=== PATIENT | female | born 1935 | race Caucasian/White ===

== ENCOUNTER 2019-05-27 22:16 | Inpatient (IN) ==
[2019-05-28 03:46] LABS: Hematocrit 35.4 % (35.3-44.9); Hemoglobin 11.2 g/dL (11.5-15.4); Mean Corpuscular HGB Conc 31.6 g/dL (31.6-35.5); Mean Corpuscular Hemoglobin 30.9 pg (28.0-33.3); Mean Corpuscular Volume 97.5 fL (83.0-100.0); Mean Platelet Volume 10.3 fL (9.4-12.4); Platelet Count 274 K/mcL (140-400); Red Blood Count 3.63 M/mcL (3.82-4.97); Red Cell Distribution Width 13.9 % (11.5-14.5); White Blood Count 8.6 K/mcL (4.3-11.1)
[2019-05-28 04:07] LABS: Albumin 3.3 g/dL (3.5-5.7); Albumin/Globulin Ratio 1.3 (1.1-2.2); Bilirubin,Total 0.5 mg/dL (0.3-1.0); Calcium 9.7 mg/dL (8.6-10.3); Globulin 2.6 g/dL (2.4-3.5); Potassium 5.1 mEq/L (3.5-5.1); Total Protein 5.9 g/dL (6.4-8.9)
[2019-05-28 04:10] LABS: Troponin I 0.13 ng/mL (< 0.04)
[2019-05-28] MEDS ORDERED: Naloxone 0.4 MG/ML INJ IVP PRN (04:30)
[2019-05-28] MEDS ORDERED: 0.9 % Sodium Chloride 1,000 ML IVC ONE ×2 (04:31→08:12)
[2019-05-28] MEDS ORDERED: D5% in Water 1,000 ML IVC PRN (04:32)
[2019-05-28] MEDS ORDERED: *HR* Dextrose 50 % in Water (Syg) 50 ML SYRINGE IVP PRN (04:32)
[2019-05-28] MEDS ORDERED: Dextrose Gel 15 GM/37.5 ML TUBE PO PRN ×2 (04:32)
[2019-05-28] MEDS: Insulin LISPRO 300 UNITS/3 ML VIAL SQ SCH ×3 (07:41→17:18)
[2019-05-28 09:54] LABS: Potassium 4.9 mEq/L (3.5-5.1)
[2019-05-28] MEDS: *HR* Heparin 5,000 UNIT/ML VIAL SQ SCH (17:17)
[2019-05-28] MEDS ORDERED: Lidocaine 4% CREAM (LMX) 5 GM TP PRN (17:23)
[2019-05-28] MEDS: 0.9 % Sodium Chloride 1,000 ML IVC SCH (17:30)
[2019-05-28] MEDS: Gabapentin 300 MG CAPSULE PO SCH (20:15)
[2019-05-29] MEDS: 0.9 % Sodium Chloride 1,000 ML IVC SCH (03:21)
[2019-05-29] MEDS: Insulin LISPRO 300 UNITS/3 ML VIAL SQ SCH ×6 (03:33→21:24)
[2019-05-29 04:34] LABS: Basophils % 0.3 %; Eosinophils # 0.5 K/mcL (0.0-0.6); Eosinophils % 7.5 %; Hematocrit 33.5 % (35.3-44.9); Hemoglobin 10.1 g/dL (11.5-15.4); Lymphocytes # 1.4 K/mcL (0.6-4.6); Lymphocytes % 20.7 %; Mean Corpuscular HGB Conc 30.1 g/dL (31.6-35.5); Mean Corpuscular Hemoglobin 30.3 pg (28.0-33.3); Mean Corpuscular Volume 100.6 fL (83.0-100.0); Mean Platelet Volume 10.5 fL (9.4-12.4); Monocytes # 0.7 K/mcL (0.0-1.3); Monocytes % 9.5 %; Neutrophils # 4.3 K/mcL (1.6-8.9); Platelet Count 217 K/mcL (140-400); Red Blood Count 3.33 M/mcL (3.82-4.97); Red Cell Distribution Width 13.9 % (11.5-14.5)
[2019-05-29 04:35] LABS: Calcium 8.7 mg/dL (8.6-10.3); Potassium 4.8 mEq/L (3.5-5.1)
[2019-05-29] MEDS: *HR* Heparin 5,000 UNIT/ML VIAL SQ SCH ×2 (05:51→18:58)
[2019-05-29] MEDS: Gabapentin 300 MG CAPSULE PO SCH ×2 (09:19→21:07)
[2019-05-29] MEDS: FENOFIBRATE 160 MG PO SCH (09:20)
[2019-05-29] MEDS ORDERED: hydrALAZINE 10 MG TABLET PO PRN (11:56)
[2019-05-29] MEDS ORDERED: *HR* OxyCODONE/APAP 5/325 TABLET PO PRN (13:53)
[2019-05-29] MEDS: *HR* OxyCODONE/APAP 10/325 TABLET PO PRN (16:53)
[2019-05-29] MEDS ORDERED: Ondansetron 4 MG/2 ML VIAL IVP ONE (17:54)
[2019-05-29] MEDS: *HR* OxyCODONE/APAP 5/325 TABLET PO PRN (21:07)
[2019-05-30] MEDS: *HR* OxyCODONE/APAP 5/325 TABLET PO PRN ×2 (05:58→17:50)
[2019-05-30] MEDS: *HR* Heparin 5,000 UNIT/ML VIAL SQ SCH ×2 (05:59→18:49)
[2019-05-30] MEDS ORDERED: hydroCHLOROthiazide 25 MG TABLET PO SCH (09:00)
[2019-05-30] MEDS: Insulin LISPRO 300 UNITS/3 ML VIAL SQ SCH ×4 (09:13→21:49)
[2019-05-30] MEDS: FENOFIBRATE 160 MG PO SCH (09:15)
[2019-05-30] MEDS: Gabapentin 300 MG CAPSULE PO SCH ×2 (09:15→21:48)
[2019-05-30 14:24] LABS: Basophils % 0.3 %; Eosinophils # 0.4 K/mcL (0.0-0.6); Eosinophils % 5.7 %; Hematocrit 36.7 % (35.3-44.9); Hemoglobin 11.6 g/dL (11.5-15.4); Immature Granulocytes % 1.2 % (0-4); Lymphocytes # 1.4 K/mcL (0.6-4.6); Lymphocytes % 18.1 %; Mean Corpuscular HGB Conc 31.6 g/dL (31.6-35.5); Mean Corpuscular Hemoglobin 30.2 pg (28.0-33.3); Mean Corpuscular Volume 95.6 fL (83.0-100.0); Mean Platelet Volume 10.1 fL (9.4-12.4); Monocytes # 0.8 K/mcL (0.0-1.3); Monocytes % 10.3 %; Neutrophils # 4.8 K/mcL (1.6-8.9); Platelet Count 268 K/mcL (140-400); Red Blood Count 3.84 M/mcL (3.82-4.97); Red Cell Distribution Width 13.8 % (11.5-14.5); Segmented Neutrophils % 64.4 %; White Blood Count 7.5 K/mcL (4.3-11.1)
[2019-05-30 14:46] LABS: Calcium 9.2 mg/dL (8.6-10.3); Potassium 4.7 mEq/L (3.5-5.1)
[2019-05-30] MEDS ORDERED: Ondansetron 4 MG/2 ML VIAL IVP PRN (18:33)
[2019-05-30] MEDS: *HR* OxyCODONE/APAP 10/325 TABLET PO PRN (23:02)
[2019-05-31] MEDS: *HR* Heparin 5,000 UNIT/ML VIAL SQ SCH ×2 (06:24→18:17)
[2019-05-31] MEDS: Insulin LISPRO 300 UNITS/3 ML VIAL SQ SCH ×4 (08:18→21:29)
[2019-05-31] MEDS: Gabapentin 300 MG CAPSULE PO SCH ×2 (09:15→21:32)
[2019-05-31] MEDS: Sennosides 8.6 MG TABLET PO SCH (09:16)
[2019-05-31] MEDS: FENOFIBRATE 160 MG PO SCH (09:18)
[2019-05-31 10:47] LABS: Calcium 9.1 mg/dL (8.6-10.3); Potassium 4.5 mEq/L (3.5-5.1)
[2019-05-31] MEDS ORDERED: Bisacodyl 10 MG RECTAL SUPPOSITORY RC PRN (14:20)
[2019-05-31] MEDS ORDERED: clonazePAM 0.5 MG TABLET PO ONE (15:31)
[2019-05-31] MEDS ORDERED: Bisacodyl 10 MG RECTAL SUPPOSITORY RC ONE (16:58)
[2019-05-31] MEDS: *HR* OxyCODONE/APAP 5/325 TABLET PO PRN (21:33)
[2019-06-01] MEDS: *HR* OxyCODONE/APAP 5/325 TABLET PO PRN ×2 (05:31→23:16)
[2019-06-01] MEDS: *HR* Heparin 5,000 UNIT/ML VIAL SQ SCH ×2 (05:32→16:49)
[2019-06-01] MEDS ORDERED: Lidocaine 4% CREAM (LMX) 5 GM TP PRN (07:39)
[2019-06-01] MEDS: Insulin LISPRO 300 UNITS/3 ML VIAL SQ SCH ×4 (08:24→21:32)
[2019-06-01] MEDS: Fenofibrate 54 MG TABLET PO SCH (08:24)
[2019-06-01] MEDS: Sennosides 8.6 MG TABLET PO SCH (08:24)
[2019-06-01] MEDS: Gabapentin 300 MG CAPSULE PO SCH ×2 (08:24→20:00)
[2019-06-01 14:20] LABS: Bilirubin,Urine Negative (Negative); Blood,Urine Negative (Negative); Clarity,Urine Clear (Clear); Color,Urine Yellow (Yellow); Glucose,Urine (UA) 100 mg/dL (Normal); Ketones,Urine Negative (Negative); Leukocyte Esterase,Urine Small (Negative); Nitrite,Urine Negative (Negative); Protein,Urine Negative (Neg-Trace); Specific Gravity,Urine 1.018 (1.010-1.025); Urobilinogen,Urine Normal (Normal)
[2019-06-01 14:23] LABS: Bacteria,Urine None Seen per hpf (None-Few); Hyaline Casts,Urine None Seen per lpf (None-Few); Squamous Epithelial Cell,Urine Many per lpf (None-Few); WBC,Urine 0-3 per hpf (0-3)
[2019-06-01] MEDS ORDERED: Acetaminophen 325 MG TABLET PO PRN (16:25)
[2019-06-02] MEDS: *HR* Heparin 5,000 UNIT/ML VIAL SQ SCH ×2 (05:35→16:47)
[2019-06-02 05:42] LABS: Basophils % 0.2 %; Eosinophils # 0.4 K/mcL (0.0-0.6); Eosinophils % 2.7 %; Hematocrit 31.3 % (35.3-44.9); Immature Granulocytes % 0.9 % (0-4); Lymphocytes # 1.7 K/mcL (0.6-4.6); Lymphocytes % 11.6 %; Mean Corpuscular HGB Conc 31.3 g/dL (31.6-35.5); Mean Corpuscular Volume 95.7 fL (83.0-100.0); Mean Platelet Volume 10.1 fL (9.4-12.4); Monocytes # 1.2 K/mcL (0.0-1.3); Monocytes % 8.3 %; Neutrophils # 11.4 K/mcL (1.6-8.9); Platelet Count 247 K/mcL (140-400); Red Blood Count 3.27 M/mcL (3.82-4.97); Red Cell Distribution Width 13.3 % (11.5-14.5); Segmented Neutrophils % 76.3 %
[2019-06-02 05:44] LABS: Hemoglobin 9.8 g/dL (11.5-15.4); White Blood Count 14.9 K/mcL (4.3-11.1)
[2019-06-02 06:02] LABS: Calcium 8.6 mg/dL (8.6-10.3); Potassium 5.1 mEq/L (3.5-5.1)
[2019-06-02] MEDS: Insulin LISPRO 300 UNITS/3 ML VIAL SQ SCH ×4 (08:25→20:40)
[2019-06-02] MEDS: Gabapentin 300 MG CAPSULE PO SCH ×2 (08:27→20:22)
[2019-06-02] MEDS: Fenofibrate 54 MG TABLET PO SCH (08:27)
[2019-06-02] MEDS: Sennosides 8.6 MG TABLET PO SCH (08:42)
[2019-06-02] MEDS: 0.9 % Sodium Chloride 1,000 ML IVC SCH (11:22)
[2019-06-02 11:29] LABS: Adenovirus Not Detected (Not Detect); Bordetella Pertussis Not Detected (Not Detect); Chlamydophila pneumoniae Not Detected (Not Detect); Coronavirus 229E Not Detected (Not Detect); Coronavirus HKU1 Not Detected (Not Detect); Coronavirus NL63 Not Detected (Not Detect); Coronavirus OC43 Not Detected (Not Detect); Human Metapneumovirus Not Detected (Not Detect); Human Rhinovirus/Enterovirus Not Detected (Not Detect); Influenza A Subtype 2009 H1 Not Detected (Not Detect); Influenza B Not Detected (Not Detect); Mycoplasma pneumoniae Not Detected (Not Detect); Parainfluenza Virus 1 Not Detected (Not Detect); Parainfluenza Virus 2 Not Detected (Not Detect); Parainfluenza Virus 3 Not Detected (Not Detect); Parainfluenza Virus 4 Not Detected (Not Detect); Respiratory Syncytial Virus Not Detected (Not Detect)
[2019-06-02] MEDS ORDERED: levoFLOXacin 750 MG/150 ML 750 MG/150 ML BAG IVPB SCH (14:50)
[2019-06-02] MEDS ORDERED: Cefepime HCl 2,000 MG in 0.9 % Sodium Chloride Mini Bag 100 ML IVPB ONE (14:59)
[2019-06-02] MEDS ORDERED: Azithromycin 500 MG in 0.9 % Sodium Chloride 250 ML IVPB SCH (16:00)
[2019-06-02] MEDS ORDERED: Cefepime HCl 1,000 MG in 0.9 % Sodium Chloride Mini Bag 100 ML IVPB SCH (21:00)
[2019-06-03] MEDS: 0.9 % Sodium Chloride 1,000 ML IVC SCH (02:31)
[2019-06-03] MEDS: *HR* Heparin 5,000 UNIT/ML VIAL SQ SCH (05:41)
[2019-06-03 06:21] LABS: Basophils % 0.2 %; Eosinophils # 0.5 K/mcL (0.0-0.6); Eosinophils % 4.1 %; Hemoglobin 9.2 g/dL (11.5-15.4); Immature Granulocytes % 1.4 % (0-4); Lymphocytes # 1.3 K/mcL (0.6-4.6); Lymphocytes % 10.8 %; Mean Corpuscular HGB Conc 30.7 g/dL (31.6-35.5); Mean Corpuscular Hemoglobin 30.6 pg (28.0-33.3); Mean Corpuscular Volume 99.7 fL (83.0-100.0); Mean Platelet Volume 10.1 fL (9.4-12.4); Monocytes % 7.9 %; Neutrophils # 9.2 K/mcL (1.6-8.9); Platelet Count 240 K/mcL (140-400); Red Blood Count 3.01 M/mcL (3.82-4.97); Red Cell Distribution Width 13.3 % (11.5-14.5); Segmented Neutrophils % 75.6 %; White Blood Count 12.2 K/mcL (4.3-11.1)
[2019-06-03 06:43] LABS: Calcium 8.5 mg/dL (8.6-10.3); Potassium 4.3 mEq/L (3.5-5.1)
[2019-06-03] MEDS: Fenofibrate 54 MG TABLET PO SCH (08:16)
[2019-06-03] MEDS: Gabapentin 300 MG CAPSULE PO SCH (08:17)
[2019-06-03] MEDS: Insulin LISPRO 300 UNITS/3 ML VIAL SQ SCH ×2 (08:18→11:56)
[2019-06-03] MEDS: Sennosides 8.6 MG TABLET PO SCH (08:18)
[2019-06-03] MEDS ORDERED: cefTRIAXone 1,000 MG in Water for inj. (sterile) 10 ML IVP SCH (09:00)
[2019-06-03] MEDS ORDERED: cefTRIAXone 1,000 MG in 0.9 % Sodium Chloride Mini Bag 100 ML IVPB SCH (09:00)
[2019-06-03] MEDS ORDERED: Azithromycin 250 MG TABLET PO SCH (09:00)
[2019-06-03 11:24] VITALS: BP 131/62
== END 2019-06-03 13:15 | DRG 564 ==
LOC: 2ANU → SUATTDRO 23:52
PROVIDERS: ADMIT Internal Medicine; ATTEND Internal Medicine